=== PATIENT | male | born 1935 | race Caucasian/White ===

== ENCOUNTER 2017-08-29 10:11 | Emergency (ER) | payer MEDICARE, MEDICAID ==
[~2017-08-29] VITALS: Ht 172.7 cm; Wt 70.8 kg
[~2017-08-29 10:11] MED LIST: ACET-73 PO; ALBU2.5V38 IH; AZAT50TA PO; CALC1TAB87 PO; CHOL100062 PO; DOCU100T2 PO; DOXA1TAB PO; FERR324T7 PO; IPRA0.2S6 HHN; KETO200S3 TP; LIDO30AD10 TD; MAGN400O6 PO; MENT71OI TP; MULT9LIQ PO; OMEP20TA20 PO; PEG15DRO5 EACHEYE; POLY17PO3 PO; PRED1TAB PO; QUET25TA PO; TRIA60LO14 TP
--- NOTE | 2017-08-29 10:54 | NUR ---
CALLED [facility]. ETA 3 MINUTES
== END 2017-08-29 10:58 | disposition home or self-care (01) ==
LOC: ER 10:11
DX: S00.411A Abrasion of right ear, initial encounter (principal); I10 Essential (primary) hypertension; K21.9 Gastro-esophageal reflux disease without esophagitis; E11.9 Type 2 diabetes mellitus without complications; G70.00 Myasthenia gravis without (acute) exacerbation; X58.XXXA Exposure to other specified factors, initial encounter; Y93.E1 Activity, personal bathing and showering; Y92.89 Other specified places as the place of occurrence of the external cause; Y99.8 Other external cause status
CPT/HCPCS: 99283; A4663

== ENCOUNTER 2018-11-16 18:44 | Inpatient (IN) | payer MEDICARE, MEDICAID ==
[~2018-11-16] VITALS: Ht 170.2 cm; Wt 71.2 kg
[~2018-11-16 18:44] MED LIST changes: +POLY17PO29 PO; -POLY17PO3 PO
[2018-11-16] MEDS ORDERED: IV NORMAL SALINE 500 ML BAG IV ONE (19:15)
[2018-11-16] MEDS ORDERED: LEVOFLOXACIN 750MG/D5W 150 ML IV ONE ×2 (19:15→19:37)
[2018-11-16 19:31] LABS: BASOPHILS % (AUTO) 0.1 % (0.0-2.0); EOSINOPHILS % (AUTO) 0.1 % (0.0-7.0); HEMOGLOBIN 12.4 g/dL (12.5-16.3); LYMPHOCYTES # (AUTO) 0.7 K/uL (20.0-40.0); LYMPHOCYTES % (AUTO) 7.8 % (20.5-51.5); MEAN CORPUSCULAR HEMOGLOBIN 35.3 uug (23.8-33.4); MEAN CORPUSCULAR HGB CONC 34 g/dL (32.5-36.3); MEAN CORPUSCULAR VOLUME 105.5 fL (73.0-96.2); MONOCYTES # (AUTO) 0.8 K/uL (2.0-10.0); MONOCYTES % (AUTO) 9.2 % (0.0-11.0); NEUTROPHILS % (AUTO) 82.8 % (38.5-71.5); PLATELET COUNT (AUTO) 103 K/uL (152-348); RED BLOOD CELL COUNT(AUTO) 3.51 MIL/uL (4.06-5.63); WHITE BLOOD COUNT (AUTO) 8.5 K/uL (3.6-10.2)
[2018-11-16 19:55] LABS: ALANINE AMINOTRANSFERASE 20 U/L (16-63); ALKALINE PHOSPHATASE 66 U/L (50-136); ASPARTATE AMINOTRANSFERASE 22 U/L (15-37); BILIRUBIN,DIRECT 0.4 mg/dL (0.0-0.2); BILIRUBIN,TOTAL 1.3 mg/dL (0.2-1.0); CARBON DIOXIDE 25 mmol/L (21-32); CHLORIDE 108 mmol/L (98-107); CREATININE 1.4 mg/dL (0.6-1.3); GLUCOSE 101 mg/dL (74-106); POTASSIUM 4.6 mmol/L (3.5-5.1); UREA NITROGEN, BLOOD 28 mg/dL (7-18)
[2018-11-16] MEDS ORDERED: ALEN70TA6 PO (20:00)
[2018-11-16] MEDS ORDERED: [UNRECOGNIZED DRUG - CODE] PO (20:00)
[2018-11-16] MEDS ORDERED: POLY17PO4 PO (20:00)
[2018-11-16] MEDS ORDERED: NITROGLYCERIN OINT 1 GM PACKET TP ONE ×2 (20:00→20:15)
[2018-11-16] MEDS ORDERED: ASPIRIN 81 MG TAB.CHEW PO ONE (20:00)
[2018-11-16] MEDS ORDERED: ASPIRIN 81 MG TAB.CHEW ONE (20:15)
[2018-11-16 20:58] LABS: ABG BASE EXCESS -0.4 mmol/L; ABG HCO3 23.5 mmol/L; ABG PH 7.433 (7.350-7.450); ABG PO2 34.3 mmHg (75.0-100.0); ABG SITE RIGHT RADIAL; ABG TOTAL HEMOGLOBIN 12.4 G/dL (13.5-18.0); COHb 1.5 % (0.5-1.5); MetHb 0.5 % (0.0-1.5); O2Hb 60.6 % (94.0-97.0); VENT MODE Nasal Cannula
[2018-11-16 22:40] VITALS: BP 149/66
[2018-11-17] VITALS (7 sets, daily range): BP systolic 106–135; BP diastolic 64–78
[2018-11-17] MEDS ORDERED: HYDROCODONE/APAP 5-325MG TABLET PO PRN (00:45)
[2018-11-17] MEDS ORDERED: ONDANSETRON 4 MG/2 ML VIAL IV PRN (00:45)
[2018-11-17] MEDS ORDERED: ZOLPIDEM 5 MG TABLET PO PRN (00:45)
[2018-11-17] MEDS ORDERED: ACETAMINOPHEN 325 MG TABLET PO PRN (00:45)
[2018-11-17] MEDS: ALBUTEROL SULFATE 2.5 MG/3 ML NEBU NEB SCH ×4 (01:09→19:47)
[2018-11-17 03:41] LABS: *BILIRUBIN,URIN NEGATIVE (NEGATIVE); *BLOOD, URINE 2+ (NEGATIVE); *CLARITY,URINE CLOUDY (CLEAR); *COLOR,URINE DARK YELLOW (YELLOW); *KETONES,URINE 1+ (NEGATIVE); *UROBILINOGEN,URINE 0.2 E.U./dl (NORMAL); LEUKOCYTE ESTERASE ,URINE 2+ (NEGATIVE); NITRITE, URINE POSITIVE (NEGATIVE); PH,URINE 5.5 (5.0-8.0); UGLUCOSE NEGATIVE (NEGATIVE)
[2018-11-17 03:51] LABS: BACTERIA,URINE MANY /HPF (NONE SEEN); RBC,URINE 20-50 /HPF (0-3); SQUAMOUS EPITHELIAL CELL,UR FEW /HPF (NONE SEEN); WBC,URINE TNTC /HPF (0-3)
[2018-11-17] MEDS: ALBUTEROL SULFATE 2.5 MG/3 ML NEBU NEB PRN ×2 (05:04→16:43)
[2018-11-17] MEDS: PANTOPRAZOLE SODIUM 40 MG TABLET.DR PO SCH (06:00)
[2018-11-17] MEDS: MULTIVIT, IRON, MIN NO. 8, FA TABLET PO SCH (08:34)
[2018-11-17] MEDS: predniSONE 10 MG TABLET PO SCH (08:34)
[2018-11-17] MEDS: DOXAZOSIN 1 MG TABLET PO SCH (08:34)
[2018-11-17] MEDS: AZATHIOPRINE 50 MG TABLET PO SCH (08:35)
[2018-11-17] MEDS: Z GUARD REMEDY PASTE 57 GM TUBE TOP PRN (08:35)
[2018-11-17] MEDS ORDERED: LEVOFLOXACIN 250MG /D5W 250 MG in PREMIXED 1 EACH IV SCH (08:45)
[2018-11-17] MEDS ORDERED: predniSONE 1 MG TABLET PO SCH (09:00)
[2018-11-17] MEDS ORDERED: MULTIVITS W-FE,OTHER MIN 15 ML UDC PO SCH (09:00)
[2018-11-17] MEDS ORDERED: LEVOFLOXACIN 500 MG TABLET PO SCH (09:00)
[2018-11-17] MEDS ORDERED: LIDOCAINE 5% PATCH TD SCH (09:00)
[2018-11-17] MEDS ORDERED: TRIAMCINOLONE ACETONIDE 0.1% 60 ML LOTION BOTTLE TP SCH (09:00)
[2018-11-17] MEDS: LIDOCAINE 5% PATCH TD SCH (09:35)
[2018-11-17] MEDS: MAGNESIUM HYDROXIDE 30 ML LIQUID UDC PO PRN (15:19)
[2018-11-17] MEDS ORDERED: FUROSEMIDE 40 MG/4 ML VIAL IV ONE (19:30)
[2018-11-17] MEDS: METOPROLOL TARTRATE 25 MG TABLET PO SCH (23:21)
[2018-11-18] VITALS (7 sets, daily range): BP systolic 98–130; BP diastolic 57–81
[2018-11-18] MEDS: ALBUTEROL SULFATE 2.5 MG/3 ML NEBU NEB PRN ×3 (00:21→22:58)
[2018-11-18] MEDS: PANTOPRAZOLE SODIUM 40 MG TABLET.DR PO SCH (06:31)
[2018-11-18] MEDS: ALBUTEROL SULFATE 2.5 MG/3 ML NEBU NEB SCH ×3 (06:38→19:26)
[2018-11-18 06:46] LABS: EOSINOPHILS % (AUTO) 0.1 % (0.0-7.0); HEMATOCRIT 33.6 % (36.7-47.1); HEMOGLOBIN 11.4 g/dL (12.5-16.3); LYMPHOCYTES # (AUTO) 0.4 K/uL (20.0-40.0); LYMPHOCYTES % (AUTO) 4.5 % (20.5-51.5); MEAN CORPUSCULAR HEMOGLOBIN 35.7 uug (23.8-33.4); MEAN CORPUSCULAR HGB CONC 34 g/dL (32.5-36.3); MEAN CORPUSCULAR VOLUME 104.9 fL (73.0-96.2); MONOCYTES # (AUTO) 0.9 K/uL (2.0-10.0); MONOCYTES % (AUTO) 8.6 % (0.0-11.0); NEUTROPHILS # (AUTO) 8.6 K/uL (1.8-8.9); NEUTROPHILS % (AUTO) 86.8 % (38.5-71.5); PLATELET COUNT (AUTO) 95 K/uL (152-348); WHITE BLOOD COUNT (AUTO) 9.9 K/uL (3.6-10.2)
[2018-11-18 07:00] LABS: CARBON DIOXIDE 28 mmol/L (21-32); CHLORIDE 110 mmol/L (98-107); CHOLESTEROL 142 mg/dL (<200); CREATININE 1.3 mg/dL (0.6-1.3); GLUCOSE 145 mg/dL (74-106); HDL CHOLESTEROL 71 mg/dL (40-60); MAGNESIUM 2.3 mg/dL (1.8-2.4); PHOSPHOROUS 3.3 mg/dL (2.5-4.9); POTASSIUM 4.2 mmol/L (3.5-5.1); TRIGLYCERIDES 36 MG/DL (30-150); UREA NITROGEN, BLOOD 30 mg/dL (7-18)
[2018-11-18] MEDS: MULTIVIT, IRON, MIN NO. 8, FA TABLET PO SCH (08:18)
[2018-11-18] MEDS: predniSONE 10 MG TABLET PO SCH (08:18)
[2018-11-18] MEDS: MIRALAX 17 GM POWD.PACK PO PRN (08:19)
[2018-11-18] MEDS: LIDOCAINE 5% PATCH TD SCH (08:19)
[2018-11-18] MEDS: METOPROLOL TARTRATE 25 MG TABLET PO SCH ×2 (08:19→20:34)
[2018-11-18] MEDS: AZATHIOPRINE 50 MG TABLET PO SCH (08:20)
[2018-11-18] MEDS: DOXAZOSIN 1 MG TABLET PO SCH (08:20)
[2018-11-18] MEDS: Z GUARD REMEDY PASTE 57 GM TUBE TOP PRN (08:21)
[2018-11-18] MEDS ORDERED: FUROSEMIDE 20 MG/2 ML VIAL IV SCH ×2 (09:00→21:00)
[2018-11-18] MEDS ORDERED: ASPIRIN 81 MG TAB.CHEW PO SCH (09:00)
[2018-11-18] MEDS ORDERED: FUROSEMIDE 20 MG/2 ML VIAL IV ONE (11:00)
[2018-11-18] MEDS: LEVOFLOXACIN 750MG/D5W 750 MG in PREMIXED 1 EACH IV SCH (17:18)
[2018-11-18] MEDS: SODIUM CHLORIDE 2% OPHT DROPS 15 ML EACHEYE PRN ×2 (17:18→18:24)
[2018-11-18] MEDS ORDERED: LEVOFLOXACIN 500 MG TABLET PO SCH (18:00)
[2018-11-19 03:43] VITALS: BP 128/80
[2018-11-19] MEDS: PANTOPRAZOLE SODIUM 40 MG TABLET.DR PO SCH (06:16)
[2018-11-19 06:52] LABS: BASOPHILS % (AUTO) 0.1 % (0.0-2.0); HEMATOCRIT 33.5 % (36.7-47.1); HEMOGLOBIN 11.3 g/dL (12.5-16.3); LYMPHOCYTES # (AUTO) 0.4 K/uL (20.0-40.0); LYMPHOCYTES % (AUTO) 4.5 % (20.5-51.5); MEAN CORPUSCULAR HEMOGLOBIN 35.5 uug (23.8-33.4); MEAN CORPUSCULAR HGB CONC 34 g/dL (32.5-36.3); MEAN CORPUSCULAR VOLUME 105.2 fL (73.0-96.2); MONOCYTES # (AUTO) 0.9 K/uL (2.0-10.0); NEUTROPHILS # (AUTO) 8.4 K/uL (1.8-8.9); NEUTROPHILS % (AUTO) 86.4 % (38.5-71.5); PLATELET COUNT (AUTO) 89 K/uL (152-348); RED BLOOD CELL COUNT(AUTO) 3.19 MIL/uL (4.06-5.63); WHITE BLOOD COUNT (AUTO) 9.7 K/uL (3.6-10.2)
[2018-11-19 07:04] LABS: ALANINE AMINOTRANSFERASE 31 U/L (16-63); ALKALINE PHOSPHATASE 76 U/L (50-136); ASPARTATE AMINOTRANSFERASE 37 U/L (15-37); CARBON DIOXIDE 29 mmol/L (21-32); CHLORIDE 109 mmol/L (98-107); CREATININE 1.4 mg/dL (0.6-1.3); GLUCOSE 130 mg/dL (74-106); MAGNESIUM 2.3 mg/dL (1.8-2.4); PHOSPHOROUS 3.2 mg/dL (2.5-4.9); POTASSIUM 4.2 mmol/L (3.5-5.1); TOTAL PROTEIN, SERUM 5.3 g/dL (6.4-8.2); UREA NITROGEN, BLOOD 35 mg/dL (7-18)
[2018-11-19] MEDS: ALBUTEROL SULFATE 2.5 MG/3 ML NEBU NEB SCH ×3 (07:26→17:48)
[2018-11-19] MEDS: AZATHIOPRINE 50 MG TABLET PO SCH (08:38)
[2018-11-19] MEDS: predniSONE 10 MG TABLET PO SCH (08:38)
[2018-11-19] MEDS: DOXAZOSIN 1 MG TABLET PO SCH (08:38)
[2018-11-19] MEDS: MULTIVIT, IRON, MIN NO. 8, FA TABLET PO SCH (08:39)
[2018-11-19] MEDS: LIDOCAINE 5% PATCH TD SCH (08:39)
[2018-11-19] MEDS: METOPROLOL TARTRATE 25 MG TABLET PO SCH ×2 (08:39→20:15)
[2018-11-19] MEDS: SODIUM CHLORIDE 2% OPHT DROPS 15 ML EACHEYE PRN (08:46)
[2018-11-19 08:48] VITALS: BP 121/61
[2018-11-19 11:23] VITALS: BP 104/60
[2018-11-19] MEDS ORDERED: FUROSEMIDE 20 MG/2 ML VIAL IV SCH (14:00)
[2018-11-19] MEDS: FUROSEMIDE 40 MG/4 ML VIAL IVP SCH ×2 (14:11→22:07)
[2018-11-19 14:14] VITALS: BP 119/67
[2018-11-19] MEDS: MIRALAX 17 GM POWD.PACK PO PRN (14:19)
[2018-11-19 16:43] VITALS: BP 121/70
[2018-11-19 20:02] VITALS: BP 107/66
[2018-11-19] MEDS: MAGNESIUM HYDROXIDE 30 ML LIQUID UDC PO PRN (20:21)
[2018-11-19] MEDS: ALBUTEROL SULFATE 2.5 MG/3 ML NEBU NEB PRN (22:08)
[2018-11-20 00:09] VITALS: BP 94/75
[2018-11-20 04:09] VITALS: BP 120/74
[2018-11-20] MEDS: ALBUTEROL SULFATE 2.5 MG/3 ML NEBU NEB PRN ×3 (04:27→16:09)
[2018-11-20] MEDS: FUROSEMIDE 40 MG/4 ML VIAL IVP SCH (05:42)
[2018-11-20 06:28] LABS: BASOPHILS % (AUTO) 0.1 % (0.0-2.0); EOSINOPHILS % (AUTO) 0.3 % (0.0-7.0); HEMATOCRIT 34.3 % (36.7-47.1); HEMOGLOBIN 11.7 g/dL (12.5-16.3); LYMPHOCYTES # (AUTO) 0.5 K/uL (20.0-40.0); LYMPHOCYTES % (AUTO) 6.1 % (20.5-51.5); MEAN CORPUSCULAR HEMOGLOBIN 35.9 uug (23.8-33.4); MEAN CORPUSCULAR HGB CONC 34 g/dL (32.5-36.3); MEAN CORPUSCULAR VOLUME 105.8 fL (73.0-96.2); MONOCYTES # (AUTO) 0.7 K/uL (2.0-10.0); MONOCYTES % (AUTO) 7.9 % (0.0-11.0); NEUTROPHILS # (AUTO) 7.8 K/uL (1.8-8.9); NEUTROPHILS % (AUTO) 85.6 % (38.5-71.5); PLATELET COUNT (AUTO) 93 K/uL (152-348); RED BLOOD CELL COUNT(AUTO) 3.25 MIL/uL (4.06-5.63)
[2018-11-20] MEDS: PANTOPRAZOLE SODIUM 40 MG TABLET.DR PO SCH (06:35)
[2018-11-20 06:49] LABS: ALANINE AMINOTRANSFERASE 24 U/L (16-63); ALKALINE PHOSPHATASE 76 U/L (50-136); ASPARTATE AMINOTRANSFERASE 28 U/L (15-37); CARBON DIOXIDE 33 mmol/L (21-32); CHLORIDE 109 mmol/L (98-107); CREATININE 1.4 mg/dL (0.6-1.3); GLUCOSE 107 mg/dL (74-106); MAGNESIUM 2.5 mg/dL (1.8-2.4); PHOSPHOROUS 3.5 mg/dL (2.5-4.9); POTASSIUM 3.7 mmol/L (3.5-5.1); TOTAL PROTEIN, SERUM 5.4 g/dL (6.4-8.2); UREA NITROGEN, BLOOD 39 mg/dL (7-18)
[2018-11-20 07:05] LABS: LYMPHOCYTES % (MANUAL) 2 % (20-40); MONOCYTES % (MANUAL) 14 % (2-10); NEUTROPHILS % (MANUAL) 84 % (42-75)
[2018-11-20] MEDS: ALBUTEROL SULFATE 2.5 MG/3 ML NEBU NEB SCH ×3 (07:27→19:19)
[2018-11-20] MEDS: METOPROLOL TARTRATE 25 MG TABLET PO SCH ×2 (08:29→21:16)
[2018-11-20] MEDS: DOXAZOSIN 1 MG TABLET PO SCH (08:29)
[2018-11-20] MEDS: MULTIVIT, IRON, MIN NO. 8, FA TABLET PO SCH (08:29)
[2018-11-20] MEDS: predniSONE 10 MG TABLET PO SCH (08:29)
[2018-11-20] MEDS: LIDOCAINE 5% PATCH TD SCH (08:30)
[2018-11-20] MEDS: AZATHIOPRINE 50 MG TABLET PO SCH (08:30)
[2018-11-20] MEDS ORDERED: IV D5W 1000ML 1,000 ML IV ONE (11:00)
[2018-11-20 11:12] VITALS: BP 100/54
[2018-11-20 15:52] VITALS: BP 114/64
[2018-11-20] MEDS ORDERED: FUROSEMIDE 40 MG/4 ML VIAL IVP SCH (17:00)
[2018-11-20] MEDS: LEVOFLOXACIN 750MG/D5W 750 MG in PREMIXED 1 EACH IV SCH (17:27)
[2018-11-20 19:25] VITALS: BP 99/60
[2018-11-20 21:16] VITALS: BP 107/63
[2018-11-21] MEDS ORDERED: ASPIRIN 81 MG TAB.CHEW PO SCH (09:00)
== END 2018-11-20 23:25 | disposition short-term general hospital (02) | DRG 280 ==
LOC: ER 18:44 → TELE 22:03
PROVIDERS: ADMIT Internal Medicine; ATTEND Internal Medicine
DX: I50.41 Acute combined systolic (congestive) and diastolic (congestive) heart failure (principal); I21.A1 Myocardial infarction type 2; J18.9 Pneumonia, unspecified organism; J96.00 Acute respiratory failure, unspecified whether with hypoxia or hypercapnia; R04.2 Hemoptysis; I08.3 Combined rheumatic disorders of mitral, aortic and tricuspid valves; Z66 Do not resuscitate; G70.00 Myasthenia gravis without (acute) exacerbation; I25.10 Atherosclerotic heart disease of native coronary artery without angina pectoris; I48.0 Paroxysmal atrial fibrillation; I27.20 Pulmonary hypertension, unspecified; K21.9 Gastro-esophageal reflux disease without esophagitis; E11.9 Type 2 diabetes mellitus without complications; I10 Essential (primary) hypertension
CPT/HCPCS: 36415; 36600; 70030-TC; 71045; 83605; 83735; 84100; 85025; 87040; 87070; 87077; 87086; 87400; 92526; 92610; 93005; 93307; 94640; 94664; A4663; C1758; G0378; J1940; J1956; J7040; J7070; J7500; J7512

== ENCOUNTER 2019-11-11 21:25 | Emergency (ER) | payer MEDICARE, OTHER ==
[~2019-11-11] VITALS: Ht 162.6 cm; Wt 63.5 kg
[~2019-11-11 21:25] MED LIST changes: -ALBU2.5V38 IH; +ALEN70TA6 PO; -CALC1TAB87 PO; -CHOL100062 PO; -DOCU100T2 PO; -FERR324T7 PO; -IPRA0.2S6 HHN; -KETO200S3 TP; -MAGN400O6 PO; -MENT71OI TP; -MULT9LIQ PO; -POLY17PO29 PO; +POLY17PO4 PO; -QUET25TA PO; +[UNRECOGNIZED DRUG - CODE] PO
[2019-11-11] MEDS ORDERED: POTA-10 PO (21:56)
[2019-11-11] MEDS ORDERED: PYRI60TA PO (21:56)
[2019-11-11] MEDS ORDERED: FURO-152 PO (21:56)
[2019-11-11] MEDS ORDERED: ASCO500C18 PO (21:56)
[2019-11-11] MEDS ORDERED: FERR325T28 PO (21:56)
--- NOTE | 2019-11-11 22:00 | NUR ---
Dr. Allred at bedside for MSE.
[2019-11-11] MEDS ORDERED: TDAP DIPH,PERTUSS,TET VAC/PF 0.5 ML DISP.SYRIN IM ONE ×2 (22:13→22:15)
--- NOTE | 2019-11-11 22:26 | NUR ---
Xray at bedside.
--- NOTE | 2019-11-11 23:24 | NUR ---
Called [facility] for transport back to [facility]. ETA 2.5 hours, ~0200.
--- NOTE | 2019-11-12 02:30 | NUR ---
Jamin arrived to ER to transport patient back to [facility]. Report and documentation with EMT. VSS, no acute signs of distress, all belongings taken.
[2019-11-12 02:43] VITALS: BP 132/88
== END 2019-11-12 02:43 | disposition home or self-care (01) ==
LOC: ER 21:28
DX: S41.112A Laceration without foreign body of left upper arm, initial encounter (principal); S41.111A Laceration without foreign body of right upper arm, initial encounter; I10 Essential (primary) hypertension; K21.9 Gastro-esophageal reflux disease without esophagitis; E11.9 Type 2 diabetes mellitus without complications; Z79.899 Other long term (current) drug therapy; W19.XXXA Unspecified fall, initial encounter; Y93.89 Activity, other specified; Y92.89 Other specified places as the place of occurrence of the external cause; Y99.8 Other external cause status
CPT/HCPCS: 73030; 90715; A4217; A4663

== ENCOUNTER 2019-12-01 16:58 | Inpatient (IN) | payer MEDICARE, OTHER ==
[~2019-12-01] VITALS: Ht 172.7 cm; Wt 57.2 kg
[2019-12-01 17:56] LABS: BASOPHILS % (AUTO) 0.1 % (0.0-2.0); HEMATOCRIT 36.9 % (36.7-47.1); HEMOGLOBIN 12.5 g/dL (12.5-16.3); LYMPHOCYTES # (AUTO) 0.3 K/uL (20.0-40.0); LYMPHOCYTES % (AUTO) 6.5 % (20.5-51.5); MEAN CORPUSCULAR HEMOGLOBIN 35.5 uug (23.8-33.4); MEAN CORPUSCULAR HGB CONC 34 g/dL (32.5-36.3); MEAN CORPUSCULAR VOLUME 105.2 fL (73.0-96.2); MONOCYTES # (AUTO) 0.3 K/uL (2.0-10.0); MONOCYTES % (AUTO) 5.4 % (0.0-11.0); NEUTROPHILS # (AUTO) 4.1 K/uL (1.8-8.9); PLATELET COUNT (AUTO) 107 K/uL (152-348); RED BLOOD CELL COUNT(AUTO) 3.51 MIL/uL (4.06-5.63); WHITE BLOOD COUNT (AUTO) 4.7 K/uL (3.6-10.2)
[2019-12-01 17:59] LABS: CREATININE 1.1 mg/dL (0.6-1.3); POTASSIUM 4.2 mmol/L (3.5-5.1)
[2019-12-01] MEDS ORDERED: ASPIRIN 81 MG TAB.CHEW PO ONE (19:00)
[2019-12-01] MEDS ORDERED: ASPIRIN 81 MG TAB.CHEW ONE (19:06)
--- NOTE | 2019-12-01 19:27 | NUR ---
Assumed care of pt at this time. Pt is resting comfortably in bed. Appears in no apparent distress. Denies any pain or discomfort right now. Vital signs stable. Pending Dr. Romero to call back for admission.
--- NOTE | 2019-12-01 19:50 | NUR ---
Pt. admitted to Telemetry , under care of Dr. Kendall Romero. Diagnosis: Chest Pain. Belongs List completed. MRSA swab done.
--- NOTE | 2019-12-01 21:20 | NUR ---
Admitted a 84 years old male with diagnosis of Chest pain. Patient AAOX2-3, with periods of forgetfulness. In no acute distress. Denies any pain or SOB at this time although appears SOB on exertion. On O2 at 2LPM via NC in place. O2 sat at 95%. Denies any chest pain. IV site on right wrist intact and patent. NSR with 1st degree AV block on tele at 73/min. Very fragile skin with multiple skin issues. Family was present during admission. Routine admission care done. Plan of care initiated. Safety measure initiated and call diaz within reached.
[2019-12-01 21:30] VITALS: BP 141/49
--- NOTE | 2019-12-01 22:30 | NUR ---
Treatment done to open wounds and scabs. Handle gently and carefully during care.
[2019-12-02] VITALS: BP 138/59
--- NOTE | 2019-12-02 02:29 | NUR ---
telephone call to Dr. Romero to informed of latest Troponin level of 0.063. Informed Dr. Romero that patient will have another Troponin level at 0600. No new order given.
--- NOTE | 2019-12-02 02:30 | NUR ---
Patient NSR on tele at 73/min at this time. Appears comfortable in bed. Denies any pain or SOB. Continue to monitor.
[2019-12-02 04:00] VITALS: BP 140/64
--- NOTE | 2019-12-02 05:35 | NUR ---
Patient remains AAOX2-3, with periods of forgetfulness. In no acute distress. Denies any pain or SOB. On O2 at 2LPM via NC in place. Denies any chest pain. IV site on right wrist remains intact and patent. NSR on tele with 1st degree AV block at 78/min. Needs assessed and attended to. Safety measure maintained and call diaz within reached.
[2019-12-02 06:44] LABS: BASOPHILS % (AUTO) 0.1 % (0.0-2.0); EOSINOPHILS % (AUTO) 0.1 % (0.0-7.0); HEMATOCRIT 35.3 % (36.7-47.1); HEMOGLOBIN 12.1 g/dL (12.5-16.3); LYMPHOCYTES # (AUTO) 0.6 K/uL (20.0-40.0); LYMPHOCYTES % (AUTO) 10.6 % (20.5-51.5); MEAN CORPUSCULAR HEMOGLOBIN 36.1 uug (23.8-33.4); MEAN CORPUSCULAR HGB CONC 34 g/dL (32.5-36.3); MONOCYTES # (AUTO) 0.5 K/uL (2.0-10.0); MONOCYTES % (AUTO) 8.4 % (0.0-11.0); NEUTROPHILS # (AUTO) 4.5 K/uL (1.8-8.9); NEUTROPHILS % (AUTO) 80.8 % (38.5-71.5); PLATELET COUNT (AUTO) 107 K/uL (152-348); RED BLOOD CELL COUNT(AUTO) 3.36 MIL/uL (4.06-5.63); WHITE BLOOD COUNT (AUTO) 5.6 K/uL (3.6-10.2)
[2019-12-02 06:58] LABS: CREATININE 1.2 mg/dL (0.6-1.3); POTASSIUM 3.7 mmol/L (3.5-5.1)
[2019-12-02] MEDS ORDERED: predniSONE 1 MG TABLET PO SCH (08:00)
--- NOTE | 2019-12-02 08:00 | NUR ---
RECEIVED PATIENT IN BED, RESTING AND COMFORTABLE WITH O2 AT 2L SAT 97%. DENIES ANY CHEST PAIN OR SHORTNESS OF BREATH. AWAITING PT FOR TREATMENT AND FOLLOW-UP BY PCP AND [facility] COORDINATOR. PATIENT WITH OCCASIONAL V-PACE WITH ULR SINUS.
[2019-12-02] MEDS: predniSONE 10 MG TABLET PO SCH (08:30)
[2019-12-02] MEDS: MULTIVITAMINS,THERAPEUTIC TABLET PO SCH (08:30)
[2019-12-02] MEDS: ASCORBIC ACID 500 MG TABLET PO SCH (08:30)
[2019-12-02] MEDS: AZATHIOPRINE 50 MG TABLET PO SCH (08:35)
[2019-12-02] MEDS ORDERED: ASPIRIN 81 MG TAB.CHEW PO SCH (09:00)
[2019-12-02 11:10] VITALS: BP 128/60
[2019-12-02] MEDS: LIDOCAINE 5% PATCH TD SCH (11:18)
[2019-12-02 15:08] VITALS: BP 123/62
--- NOTE | 2019-12-02 15:15 | NUR ---
SEEN BY DR. EVANS AND DR. AMADO FOR FOLLOW-UP. SEE NOTES.
--- NOTE | 2019-12-02 18:14 | NUR ---
NEW ACUTE CHANGES FROM PREVIOUS ASSESSMENT. SINUS RHYTHM ON MONITOR.
[2019-12-02 20:00] VITALS: BP 149/119
--- NOTE | 2019-12-02 21:26 | NUR ---
SPOKE WITH DR HINTON, ORDERED TO RESUME TYLENOL AND PYRIDOSTIGMINE, COLLECT UA D/T NEW CONFUSION ONSET.
[2019-12-02] MEDS ORDERED: ACETAMINOPHEN ES 500 MG TABLET PO PRN ×2 (21:45→22:30)
[2019-12-02] MEDS: ATORVASTATIN 20 MG TABLET PO SCH (21:54)
[2019-12-03 04:00] VITALS: BP 148/75
--- NOTE | 2019-12-03 07:30 | NUR ---
AWAKE ALERT AND VERBALLY RESPOSIVE, NO SS OF PAIN OR DISTRESS. SR ON MONITOR OBSERVED
[2019-12-03] MEDS ORDERED: ALBUTEROL SULFATE 2.5 MG/3 ML NEBU NEB PRN (07:45)
[2019-12-03] MEDS: predniSONE 10 MG TABLET PO SCH (08:39)
[2019-12-03] MEDS: MULTIVITAMINS,THERAPEUTIC TABLET PO SCH (08:39)
[2019-12-03] MEDS: ASCORBIC ACID 500 MG TABLET PO SCH (08:39)
[2019-12-03] MEDS: AZATHIOPRINE 50 MG TABLET PO SCH (08:40)
[2019-12-03] MEDS: PYRIDOSTIGMINE BROMIDE 60 MG TABLET PO SCH ×3 (08:41→21:01)
[2019-12-03] MEDS: LIDOCAINE 5% PATCH TD SCH (08:42)
--- NOTE | 2019-12-03 10:00 | NUR ---
DR PHILLIPS IN AND EXAMINED PATIENT, CONTINUE TELE STATUS SEE NOTES
[2019-12-03 11:02] VITALS: BP 135/24
[2019-12-03 15:20] VITALS: BP 99/52
--- NOTE | 2019-12-03 15:23 | NUR ---
SEEN BY PT TWICE TODAY, SEE PT NOTES.
[2019-12-03] MEDS ORDERED: AZITHROMYCIN IV 500 MG in IV DEXTROSE 5% 250 ML IV SCH (16:00)
[2019-12-03] MEDS: ALBUTEROL SULFATE 2.5 MG/3 ML NEBU NEB SCH (19:48)
--- NOTE | 2019-12-03 20:03 | NUR ---
Per MD Meier. Peak flow pre tx 1948-60LPM Peak flow post tx 2002-70LPM [id number] FVC unable to obtain
[2019-12-03 20:27] VITALS: BP 126/66
[2019-12-03] MEDS: ATORVASTATIN 20 MG TABLET PO SCH (20:55)
[2019-12-04 00:48] VITALS: BP 130/58
[2019-12-04 05:02] VITALS: BP 147/63
[2019-12-04] MEDS: PYRIDOSTIGMINE BROMIDE 60 MG TABLET PO SCH ×2 (06:48→14:18)
[2019-12-04 07:03] LABS: BASOPHILS % (AUTO) 0.2 % (0.0-2.0); EOSINOPHILS % (AUTO) 0.3 % (0.0-7.0); HEMOGLOBIN 12.3 g/dL (12.5-16.3); LYMPHOCYTES # (AUTO) 1.1 K/uL (20.0-40.0); LYMPHOCYTES % (AUTO) 14.8 % (20.5-51.5); MEAN CORPUSCULAR HEMOGLOBIN 35.5 uug (23.8-33.4); MEAN CORPUSCULAR HGB CONC 34 g/dL (32.5-36.3); MEAN CORPUSCULAR VOLUME 103.6 fL (73.0-96.2); MONOCYTES # (AUTO) 0.6 K/uL (2.0-10.0); MONOCYTES % (AUTO) 8.7 % (0.0-11.0); NEUTROPHILS # (AUTO) 5.5 K/uL (1.8-8.9); PLATELET COUNT (AUTO) 102 K/uL (152-348); RED BLOOD CELL COUNT(AUTO) 3.48 MIL/uL (4.06-5.63); WHITE BLOOD COUNT (AUTO) 7.3 K/uL (3.6-10.2)
[2019-12-04 07:39] LABS: CREATININE 0.8 mg/dL (0.6-1.3); MAGNESIUM 2.1 mg/dL (1.8-2.4); PHOSPHOROUS 1.9 mg/dL (2.5-4.9); POTASSIUM 3.6 mmol/L (3.5-5.1)
--- NOTE | 2019-12-04 08:00 | NUR ---
RECEIVED PT RESTING COMFORTABLY IN BED. NO ACUTE DISTRESS OR SOB NOTED. PT ON RA WITH SATS OF 93%. PT ALERT AND ORIENTED X3. BED LOCKED AND IN LOW POSITION. CALL LIGHT WITHIN REACH. PT ON TELE MONITORING SINUS RHYTHM WITH 1ST DEGREE BLOCK WITH OCCASIONAL V PACE. WILLCONTINUE TO MONITOR FOR SAFETY AND COMFORT.
[2019-12-04] MEDS: ALBUTEROL SULFATE 2.5 MG/3 ML NEBU NEB SCH ×2 (08:22→15:05)
[2019-12-04 08:42] LABS: ABG BASE EXCESS 4.2 mmol/L; ABG HCO3 27.5 mmol/L; ABG PCO2 36.7 mmHg (35.0-45.0); ABG PH 7.492 (7.350-7.450); ABG PO2 53.2 mmHg (75.0-100.0); ABG SITE LEFT RADIAL; VENT MODE ROOM AIR
--- NOTE | 2019-12-04 09:00 | NUR ---
ER STAFF INSERTED 20 GAUGE IV LINE ON RIGHT HAND. PATENT, INTACT AND FLUSHING.
[2019-12-04] MEDS: LIDOCAINE 5% PATCH TD SCH (09:06)
[2019-12-04] MEDS: predniSONE 10 MG TABLET PO SCH (09:06)
[2019-12-04] MEDS: MULTIVITAMINS,THERAPEUTIC TABLET PO SCH (09:06)
[2019-12-04] MEDS: ASCORBIC ACID 500 MG TABLET PO SCH (09:06)
[2019-12-04] MEDS: AZATHIOPRINE 50 MG TABLET PO SCH (09:07)
--- NOTE | 2019-12-04 09:34 | NUR ---
PT'S po2 ON BLOOD GAS SHOWS 53.2. PT REFUSES USE OF SUPPLEMENTAL O2. PT'S SPO2 IS 92-93%. DR DAILY HUMPHREY.
[2019-12-04] MEDS ORDERED: GUAIFENESIN/DEXTROMETHORPHAN 5 ML UDC PO PRN (11:00)
--- NOTE | 2019-12-04 11:20 | NUR ---
PT PLACED ON SPECIALTY AIR MATTRESS. NO ACUTE DISTRESS OR SOB NOTED. WILL CONTINUE TO MONITOR FOR SAFETY AND COMFORT.
[2019-12-04 11:46] VITALS: BP 97/57
[2019-12-04] MEDS ORDERED: NEUTRA PHOS PACKET PO ONE (15:30)
[2019-12-04 15:40] VITALS: BP 121/84
--- NOTE | 2019-12-04 18:43 | NUR ---
PT HAS BEEN DISCHARGED TO [facility]. DAUGHTER AWARE OF TIME OF TRANSFER. PT TRANSFERRED VIA AMBULANCE. PT ALERT AND ORIENTED X4. WOUND CARE DONE. SKIN PICTURES TAKEN. NO ACUTE DISTRESS OR SOB NOTED. DISCHARGE INSTRUCTIONS GIVEN TO TRANSFER STAFF AND PATIENT WITH GOOD UNDERSTANDING. PHONE REPORT GIVEN TO KO GARRETT. BELONGINGS LIST AND BELONGINGS RETURNED. HEARING AIDS IN PT. PT WEARING GLASSES. AMBULANCE TRANSPORT STAFF IN POSETION OF TRANSFER DOCUMENTS.
== END 2019-12-04 18:48 | DRG 314 ==
LOC: ER 16:58 → TELE3 21:11
PROVIDERS: ADMIT Internal Medicine Nephrology; ATTEND Internal Medicine
DX: T82.847A Pain due to cardiac prosthetic devices, implants and grafts, initial encounter (principal); R53.2 Functional quadriplegia; J44.1 Chronic obstructive pulmonary disease with (acute) exacerbation; G93.40 Encephalopathy, unspecified; J98.11 Atelectasis; R07.9 Chest pain, unspecified; E11.9 Type 2 diabetes mellitus without complications; R79.89 Other specified abnormal findings of blood chemistry; G70.00 Myasthenia gravis without (acute) exacerbation; Z95.810 Presence of automatic (implantable) cardiac defibrillator; F03.90 Unspecified dementia, unspecified severity, without behavioral disturbance, psychotic disturbance, mood disturbance, and anxiety; Z95.2 Presence of prosthetic heart valve; K21.9 Gastro-esophageal reflux disease without esophagitis; I34.0 Nonrheumatic mitral (valve) insufficiency; I25.10 Atherosclerotic heart disease of native coronary artery without angina pectoris; I11.9 Hypertensive heart disease without heart failure; Z87.891 Personal history of nicotine dependence; R07.89 Other chest pain; D64.9 Anemia, unspecified; R09.02 Hypoxemia
CPT/HCPCS: 36415; 36600; 70030-TC; 71045; 83735; 84100; 85025; 87070; 93005; 93307; 94640; 94664; A4663; A9150; G0378; J0456; J7050; J7060; J7500; J7512